=== PATIENT | female | born 1995 | race American Indian/Alaskan Native ===

== ENCOUNTER 2019-08-15 19:17 | Emergency (ER) | payer OTHER ==
[2019-08-15] MEDS ORDERED: SODIUM CHLORIDE 0.9% 500 ML 500 ML IV ONE (20:27)
[2019-08-15] MEDS ORDERED: ACETAMINOPHEN 325 MG TAB PO ONE (20:29)
--- NOTE | 2019-08-15 21:18 | XRay Report ---
CHEST 2 VIEWS INDICATION / CLINICAL INFORMATION: COUGH, FLU SYMPTOMS. COMPARISON: None available. FINDINGS: SUPPORT DEVICES: None. HEART / MEDIASTINUM: The heart size and pulmonary vasculature are normal. LUNGS / PLEURA: No significant pulmonary or pleural abnormality. No pneumothorax. ADDITIONAL FINDINGS: There is mild thoracolumbar scoliosis. IMPRESSION: No acute findings. There is no evidence of pneumonia. Signer Name: Christos Armenta MD Signed: 08/15/2019 9:13 PM Workstation Name: [id number]
[2019-08-15 21:54] LABS: Bilirubin,Urine NEG (Negative); Blood,Urine MOD (Negative); Color,Urine Yellow (Yellow); Mucus,Urine 3+ /HPF; Protein,Urine <15 mg/dL mg/dL (Negative); Urobilinogen,Urine < 2.0 mg/dL (<2.0)
--- NOTE | 2019-08-15 22:26 | Emergency Department Report ---
- General Chief Complaint: Upper Respiratory Infection Stated Complaint: FLU SX Time Seen by Provider: 08/15/19 21:56 Source: patient Mode of arrival: Ambulatory Limitations: No Limitations - History of Present Illness Initial Comments: 23-year-old female presents to ED with flulike symptoms. Patient reports headache, sore throat, cough, nausea or vomiting, muscle aches, fever. She reports onset of symptoms yesterday. States are not taken anything for her symptoms. Did not taken any [id number] medications, Tylenol, or Motrin. MD Complaint: fever, cough, sore throat -: Last night Severity: moderate Quality: aching Consistency: constant Improves With: nothing Worsens With: nothing Context: sick contacts (son) Associated Symptoms: fever, chills, myalgias, headache, cough, nausea, vomiting Treatments Prior to Arrival: none - Related Data Previous Rx's Medication Instructions Recorded Last Taken Type Benzonatate [Tessalon Perles] 100 mg PO Q8HR PRN #20 capsule 08/15/19 Unknown Rx Naproxen [Naprosyn] 500 mg PO BID #20 tablet 08/15/19 Unknown Rx Ondansetron [Zofran Odt] 4 mg PO Q8HR PRN #20 tab.rapdis 08/15/19 Unknown Rx Oseltamivir [Tamiflu] 75 mg PO BID 5 Days #10 cap 08/15/19 Unknown Rx Allergies Allergy/AdvReac Type Severity Reaction Status Date / Time No Known Allergies Allergy Verified 08/15/19 21:59 ED Review of Systems ROS: Stated complaint: FLU SX Other details as noted in HPI Comment: All other systems reviewed and negative Constitutional: chills, fever ENT: throat pain Respiratory: cough Gastrointestinal: nausea, vomiting Neurological: headache ED Past Medical Hx - Past Medical History Previous Medical History?: No - Surgical History Past Surgical History?: No - Social History Smoking Status: Never Smoker Substance Use Type: Alcohol - Medications Home Medications: Home Medications Medication Instructions Recorded Confirmed Last Taken Type Benzonatate [Tessalon Perles] 100 mg PO Q8HR PRN #20 capsule 08/15/19 Unknown Rx Naproxen [Naprosyn] 500 mg PO BID #20 tablet 08/15/19 Unknown Rx Ondansetron [Zofran Odt] 4 mg PO Q8HR PRN #20 tab.rapdis 08/15/19 Unknown Rx Oseltamivir [Tamiflu] 75 mg PO BID 5 Days #10 cap 08/15/19 Unknown Rx ED Physical Exam - General Limitations: No Limitations General appearance: alert, in no apparent distress - Head Head exam: Present: atraumatic, normocephalic - Eye Eye exam: Present: normal appearance, EOMI - ENT ENT exam: Present: normal orophraynx, mucous membranes moist - Neck Neck exam: Present: normal inspection, full ROM. Absent: meningismus - Respiratory Respiratory exam: Present: normal lung sounds bilaterally. Absent: respiratory distress - Cardiovascular Cardiovascular Exam: Present: normal rhythm, tachycardia - GI/Abdominal GI/Abdominal exam: Present: soft. Absent: distended, tenderness - Extremities Exam Extremities exam: Present: normal inspection, full ROM - Neurological Exam Neurological exam: Present: alert, oriented X3 - Psychiatric Psychiatric exam: Present: normal affect, normal mood - Skin Skin exam: Present: warm, dry, intact, normal color ED Course Vital Signs 08/15/19 08/15/19 08/15/19 20:07 20:25 20:34 Temperature 101.3 F H 101.3 F H Pulse Rate 136 H 136 H Respiratory 18 18 16 Rate Blood Pressure 126/72 Blood Pressure 124/72 [Left] O2 Sat by Pulse 98 98 Oximetry 08/15/19 08/15/19 08/16/19 22:57 23:48 00:10 Temperature 99.3 F Pulse Rate 99 H Respiratory 17 18 Rate Blood Pressure Blood Pressure 111/69 [Left] O2 Sat by Pulse 99 99 Oximetry ED Medical Decision Making - Radiology Data Radiology results: report reviewed, image reviewed - Medical Decision Making 23-year-old female with flulike symptoms last night. Patient is nontoxic appearing. Initially with a fever of 101.3. Tylenol was given. Fever related her vital signs improved. She is not hypoxic. Chest x-ray is normal. Influenza testing is positive for influenza A. Patient does not require admission at this time. Prescriptions given. Outpatient follow-up as advised. Return precautions given. - Differential Diagnosis influenza, viral illness, pneumonia Critical care attestation.: If time is entered above; I have spent that time in minutes in the direct care of this critically ill patient, excluding procedure time. ED Disposition Clinical Impression: Influenza A Disposition: DC-01 TO HOME OR SELFCARE Is pt being admited?: No Condition: Stable Instructions: Influenza (ED) Prescriptions: Naproxen [Naprosyn] 500 mg PO BID #20 tablet Oseltamivir [Tamiflu] 75 mg PO BID 5 Days #10 cap Benzonatate [Tessalon Perles] 100 mg PO Q8HR PRN #20 capsule PRN Reason: Cough Ondansetron [Zofran Odt] 4 mg PO Q8HR PRN #20 tab.rapdis PRN Reason: Vomiting Referrals: PRIMARY CARE, [Primary Care Provider] - 3-5 Days [facility] [Provider Group] - 3-5 Days ADAL CARCAMO MD [Staff Physician] - 3-5 Days ELA HUDSON MD [Staff Physician] - 3-5 Days Time of Disposition: 23:45
[2019-08-15 22:58] VITALS: BP 111/69
== END 2019-08-16 00:12 | disposition home or self-care (01) ==
LOC: ED 19:17
DX: J10.1 Influenza due to other identified influenza virus with other respiratory manifestations (principal)
CPT/HCPCS: 71046; 81001; 87116; 87400; 87430; 93005; 93010